=== PATIENT | female | born 1970 | race Caucasian/White ===

== ENCOUNTER 2017-04-10 11:09 | Day surgery (SDC) | payer MEDICAID ==
[~2017-04-10] VITALS: Ht 157.5 cm; Wt 83.2 kg
[2017-04-10 11:30] VITALS: BP 118/81
[2017-04-10 11:45] VITALS: BP 117/71
[2017-04-10 12:22] LABS: ASPARTATE AMINO TRANSFERASE 9 U/L (15-37); BLOOD UREA NITROGEN 10 mg/dL (7-18)
[2017-04-10] MEDS ORDERED: MIDAZOLAM 1 MG/ML, 2ML ONE (12:57)
[2017-04-10] MEDS ORDERED: FENTANYL PF 250 MCG/5ML ONE (12:57)
[2017-04-10] MEDS ORDERED: ROCURONIUM 10 MG/ML ONE (13:16)
[2017-04-10] MEDS ORDERED: LIDOCAINE 1%, 10ML ONE (13:16)
[2017-04-10] MEDS ORDERED: ONDANSETRON 2MG/ML, 2ML ONE ×2 (13:16→17:11)
[2017-04-10] MEDS ORDERED: CLINDAMYCIN 150 MG/ML, 6ML ONE ×2 (13:16→13:31)
[2017-04-10] MEDS ORDERED: CEFAZOLIN 1,000 MG ONE (13:16)
[2017-04-10] MEDS ORDERED: PROPOFOL 10 MG/ML, 20ML ONE (13:16)
[2017-04-10] MEDS ORDERED: DEXAMETHASONE 4 MG/ML, 1ML ONE (13:16)
[2017-04-10] MEDS ORDERED: METOCLOPRAMIDE 5 MG/ML, 2ML ONE (13:16)
[2017-04-10] MEDS ORDERED: OXYcodone 5 MG/5 ML ORAL.SOL UDC PO PRN (14:00)
[2017-04-10] MEDS ORDERED: ONDANSETRON 2MG/ML, 2ML IVPush PRN (14:00)
[2017-04-10] MEDS ORDERED: LABETALOL 5MG/ML, 20ML IV PRN (14:00)
[2017-04-10] MEDS ORDERED: hydrALAzine 20 MG/ML, 1ML IV PRN (14:00)
[2017-04-10] MEDS ORDERED: PROMETHAZINE 25 MG/ML, 1ML IV PRN (14:00)
[2017-04-10] MEDS ORDERED: MIDAZOLAM 1 MG/ML, 2ML IV PRN (14:00)
[2017-04-10] MEDS ORDERED: MEPERIDINE/PF 25MG/0.5ML IVPush PRN (14:00)
[2017-04-10] MEDS ORDERED: HYDROmorphone 2 MG/ML, 1ML ONE (15:17)
[2017-04-10] MEDS ORDERED: FENTANYL PF 100 MCG/2ML ONE (15:17)
[2017-04-10] MEDS ORDERED: OXYcodone 5 MG/5 ML ORAL.SOL UDC ONE (15:18)
[2017-04-10] MEDS: FENTANYL PF 100 MCG/2ML IV PRN ×2 (15:20→15:36)
[2017-04-10] MEDS: HYDROmorphone 1 MG/ML, 1ML IV PRN ×6 (15:39→16:28)
[2017-04-10] MEDS ORDERED: HYDROmorphone 1 MG/ML, 1ML ONE (16:24)
[2017-04-10] MEDS ORDERED: OXYC5TAB2 PO (16:52)
[2017-04-10] MEDS ORDERED: OXYcodone/APAP 5/325MG TABLET PO PRN (17:30)
[2017-04-10] MEDS ORDERED: ONDANSETRON 2MG/ML, 2ML IV PRN (17:30)
[2017-04-10] MEDS ORDERED: morphine SULFATE 10 MG/ML, 1ML IV PRN (17:30)
== END 2017-04-10 18:35 | disposition home or self-care (01) ==
LOC: OR 11:09 → 4NOR 11:17 → OR 18:35
PROVIDERS: ATTEND Orthopaedic Surgery
DX: T84.098A Other mechanical complication of other internal joint prosthesis, initial encounter (principal); Y82.9 Unspecified medical devices associated with adverse incidents; Y92.9 Unspecified place or not applicable; Z88.5 Allergy status to narcotic agent; Z88.8 Allergy status to other drugs, medicaments and biological substances
CPT/HCPCS: 23462; 36415; 73020; 76001; 80053; 84702; 85025; 93005; C1713; J0690; J1100; J1170; J2250; J2405; J2704; J2765; J3010; J3490